=== PATIENT | male | born 1955 | race Caucasian/White ===

== ENCOUNTER → 2016-09-27 | Outpatient (CLI) | payer OTHER ==
[2016-09-28 10:38] LABS: HEPATITIS C VIRUS AB <0.1 s/co ratio (0.0-0.9)
[2016-09-28 10:52] LABS: VITAMIN D 25-HYDROXY 25.5 ng/mL (30.0-100.0)
== END ==
LOC: OD 08:08
PROVIDERS: ATTEND Family Medicine
DX: E55.9 Vitamin D deficiency, unspecified (principal); M10.00 Idiopathic gout, unspecified site; Z11.59 Encounter for screening for other viral diseases
CPT/HCPCS: 36415; 82306; 84550; 86704; 86705; 86706; 86707; 86803; 87340; 87350

== ENCOUNTER → 2016-10-05 | Outpatient (CLI) | payer OTHER ==
[2016-10-07 16:18] LABS: EPSTEIN BARR EARLY AG IGG AB <9.0 U/mL (0.0-8.9)
== END ==
LOC: OD 16:06
PROVIDERS: ATTEND Family Medicine
DX: R53.82 Chronic fatigue, unspecified (principal)
CPT/HCPCS: 36415; 82607; 84402; 84403; 84443; 86256; 86663; 86664; 86665

== ENCOUNTER 2016-10-17 09:58 | Day surgery (SDC) | payer OTHER ==
[~2016-10-17 09:58] MED LIST: CHONDR SU A NA/HYALUR INTRAOC KIT (SURGICARE) ONE; CHONDR SU A NA/HYALUR SOD 0.5 ML DISP.SYRIN ONE; EPINEPHRINE INJ/PF 1 MG/1 ML AMPULE ONE; KETOROLAC TROMETHAMINE 0.45% 4 DROP/0.4 ML DROPERETTE OS PRN; LIDOCAINE 1% INJ-PF (10 MG/ML) 30 ML SDV ONE; MIDAZOLAM 2 MG/2 ML INJ ONE; TETRACAINE HCL 0.5% OPH SOLN 2 ML OS PRN; TOBRAMYCIN SULFATE/DEXAMETH OPH OINTMENT 3.5 GM ONE
[2016-10-17] MEDS: CYCLOPENTOLATE 0.2%/PHENYLEPHRINE 1% OPH SOLN 2 ML OS PRN ×3 (10:45→11:05)
[2016-10-17] MEDS: TROPICAMIDE 1% OPH SOLN 3 ML OS PRN ×3 (10:45→11:05)
[2016-10-17] MEDS: BESIFLOXACIN HCL 0.6% OPH SUSP 5 ML BOTTLE OS PRN ×3 (10:46→11:49)
[2016-10-17] MEDS: TETRACAINE HCL 0.5% OPH SOLN 0.6 ML DROPERETTE OS PRN ×3 (10:47→11:27)
== END 2016-10-17 12:48 | disposition home or self-care (01) ==
LOC: SC 09:58
PROVIDERS: ATTEND Ophthalmology
PROC: 089330Z Drainage of Left Anterior Chamber with Drainage Device, Percutaneous Approach (ICD-10-PCS; 2016-10-17)
PROC: 08RK3JZ Replacement of Left Lens with Synthetic Substitute, Percutaneous Approach (ICD-10-PCS; principal; 2016-10-17 11:15)
DX: H25.12 Age-related nuclear cataract, left eye (principal); H40.1121 Primary open-angle glaucoma, left eye, mild stage; R73.03 Prediabetes; I10 Essential (primary) hypertension; M10.9 Gout, unspecified; E78.00 Pure hypercholesterolemia, unspecified; E66.9 Obesity, unspecified; Z68.31 Body mass index [BMI] 31.0-31.9, adult; Z79.899 Other long term (current) drug therapy
CPT/HCPCS: 0191T; 66984; 142; 82962; C1783; J0171; J2250; J3490; V2630

== ENCOUNTER → 2016-12-12 | Outpatient (CLI) | payer OTHER ==
[2016-12-12 11:02] LABS: ANION GAP 15 (5-19); BLOOD UREA NITROGEN 11 mg/dL (7-20); CALCIUM 9.8 mg/dL (8.4-10.2); CARBON DIOXIDE 24 mmol/L (22-30); CHLORIDE 105 mmol/L (98-107); CHOLESTEROL 140.54 mg/dL (0-200); CREATININE RESULT 0.92 mg/dL (0.52-1.25); Direct HDL 35 mg/dL (>40); GLUCOSE 102 mg/dL (75-110); SODIUM 143.5 mmol/L (137-145); TRIGLYCERIDES 229 mg/dL (<150)
[2016-12-12 11:13] LABS: DIRECT LDL 35 mg/dL (<100)
[2016-12-12 11:18] LABS: VLDL CHOLESTEROL 45.8 mg/dL (10-31)
== END ==
LOC: OD 09:55
PROVIDERS: ATTEND Internal Medicine Cardiovascular Disease
DX: E74.9 Disorder of carbohydrate metabolism, unspecified (principal); I10 Essential (primary) hypertension; R55 Syncope and collapse; R73.09 Other abnormal glucose
CPT/HCPCS: 36415; 80048; 80061; 83036

== ENCOUNTER → 2020-09-19 | Outpatient (CLI) | payer OTHER ==
--- NOTE | 2020-09-19 08:30 | RADIOLOGY REPORT (SQ) ---
EXAM DESCRIPTION: U/S ABDOMEN LIMITED W/O DOP IMAGES COMPLETED DATE/TIME: 09/19/2020 7:53 am REASON FOR STUDY: CALCULUS OF GALLBLADDER W/O CHOLECYSTITIS W/O OBSTRUCTION K80.20 CALCULUS OF GALL BLADDER W/O CHOLECYSTITIS W/O OBSTRUC COMPARISON: None. TECHNIQUE: Dynamic and static grayscale images acquired of the abdomen and recorded on PACS. Additio nal selected color Doppler and spectral images recorded. LIMITATIONS: None. FINDINGS: PANCREAS: The visualized portions of the pancreas appear normal. LIVER: Increased echogenicity of hepatic parenchyma. LIVER VASCULATURE: Normal hepatopetal directional flow in the main portal vein. GALLBLADDER: Cholelithiasis. The gallbladder wall wall is normal in thickness measuring 2 mm. There is no sludge or pericholecystic fluid. ULTRASOUND-DETECTED LYNN'S SIGN: Negative. INTRAHEPATIC DUCTS AND COMMON DUCT: The common bile duct measures 6 mm in diameter. There is no dila tation of the intrahepatic ducts. INFERIOR VENA CAVA: Patent. AORTA: No aneurysm. RIGHT KIDNEY: The right kidney measures 10.6 cm in length. There is no hydronephrosis. PERITONEAL AND RIGHT PLEURAL SPACE: No ascites or effusions. OTHER: No other findings. IMPRESSION: 1. Increased echogenicity of hepatic parenchyma suggestive of underlying hepatic steato sis. 2. Cholelithiasis. TECHNICAL DOCUMENTATION: JOB ID: [id number] 2010 [employer]- All Rights Reserved Reading location - IP/workstation name: [email or web address]
--- NOTE | 2020-09-19 10:31 | RADIOLOGY REPORT (SQ) ---
EXAM DESCRIPTION: NM HIDA SCAN IMAGES COMPLETED DATE/TIME: 09/19/2020 10:03 am REASON FOR STUDY: CALCULUS OF GALLBLADDER W/O CHOLECYSTITIS W/O OBSTRUCTION K80.20 CALCULUS OF GALL BLADDER W/O CHOLECYSTITIS W/O OBSTRUC COMPARISON: None. RADIONUCLIDE AND DOSE: DOSAGE RADIONUCLIDE: 5.33 millicuries Tc99m Mebrofenin. DOSAGE MORPHINE: None required. The route of agent administration: Intravenous TECHNIQUE: Serial of the upper abdomen were obtained in the AP projection at a rate of 2 frames per minute for 44 minutes after the intravenous injection of the radionuclide. At 44 minutes a right lat eral view was obtained. LIMITATIONS: None. FINDINGS: There is prompt uptake and excretion of the radionuclide by the hepatic parenchyma with tr ansient visualization of the intra-hepatic ducts. Activity is noted within the gallbladder within 10 minutes of injection of the radionuclide. No activity was noted within duodenum and no CCK was admi nistered. IMPRESSION: No scintigraphic evidence of acute cholecystitis. TECHNICAL DOCUMENTATION: JOB ID: [id number] 2010 [employer]- All Rights Reserved Reading location - IP/workstation name: [email or web address]
== END ==
LOC: RAD 07:23
PROVIDERS: ATTEND Nurse Practitioner Family
DX: K80.20 Calculus of gallbladder without cholecystitis without obstruction (principal)
CPT/HCPCS: 76705; 78226; A9537; Q9969